=== PATIENT | male | born 1980 | race Caucasian/White ===

== ENCOUNTER 2021-02-16 10:14 | Emergency (ER) | payer OTHER ==
--- NOTE | 2021-02-16 11:46 | US ---
Right lower extremity deep venous ultrasound: Duplex and color Doppler evaluation was obtained of the right common femoral, proximal greater saphenous, superficial femoral, popliteal, posterior tibial and peroneal veins. Left common femoral vein was also evaluated. Comparison: No prior venous imaging is available. Findings: Visualized veins shows normal compression, phasic flow and augmentation. Impression: 1. No evidence of deep venous thrombosis within the right lower extremity or within the left common femoral vein. Diagnostic code #1
--- NOTE | 2021-02-16 13:31 | EDM.PDOC ---
ED HPI GENERAL MEDICAL PROBLEM - General Chief Complaint: Lower Extremity Injury/Pain Stated Complaint: [facility] Time Seen by Provider: 02/16/21 10:49 Source of Information: Reports: Patient, RN Notes Reviewed - History of Present Illness INITIAL COMMENTS - FREE TEXT/NARRATIVE: 41 yr old male comes in with R lower leg and ankle swelling. Has had some swelling of the R knee as well. Denies any known injury. No hx of blood clots. Mild achy discomfort of knee and lower leg. - Related Data Allergies Allergy/AdvReac Type Severity Reaction Status Date / Time No Known Allergies Allergy Verified 02/16/21 10:24 Home Meds: Home Meds Ibuprofen 400 mg PO Q4H PRN 02/16/21 [History] Melatonin 10 mg PO BEDTIME 02/16/21 [History] Past Medical History HEENT History: Reports: Other (See Below) Other HEENT History: PRK surgery Cardiovascular History: Reports: Hypertension Musculoskeletal History: Reports: Fracture Other Musculoskeletal History: left ankle surgery with pin Endocrine/Metabolic History: Reports: Obesity/BMI 30+ - Past Surgical History Musculoskeletal Surgical History: Reports: Other (See Below) Other Musculoskeletal Surgeries/Procedures:: left ankle surgery with pin Social & Family History - Tobacco Use Tobacco Use Status *Q: Never Tobacco User - Caffeine Use Caffeine Use: Reports: Coffee - Recreational Drug Use Recreational Drug Use: No Review of Systems - Review of Systems Review Of Systems: See Below Respiratory: Reports: No Symptoms Cardiovascular: Reports: No Symptoms GI/Abdominal: Reports: No Symptoms Musculoskeletal: Reports: Leg Pain (mild), Other (swelling of RLE) Skin: Reports: Other (has some brown spots both lower legs that are chronic) Neurological: Denies: Numbness, Tingling, Weakness ED EXAM, GENERAL - Physical Exam Exam: See Below General Appearance: Alert, No Apparent Distress Head: Atraumatic Respiratory/Chest: No Respiratory Distress Cardiovascular: Regular Rate, Rhythm Extremities: Joint Swelling (very minimal swelling of R knee,no effusion at time of exam), Leg Pain (very mild tenderness, mild diffuse swelling of lower leg, ankle and foot). No: Increased Warmth, Redness Course - Vital Signs Text/Narrative:: US of lower extrem is neg. Labs are normal. Discharge instr. as documented. Last Recorded V/S: Last Vital Signs Temp 97.4 F 02/16/21 10:20 Pulse 93 02/16/21 10:20 Resp 16 02/16/21 10:20 BP 155/108 H 02/16/21 10:20 Pulse Ox 99 02/16/21 10:20 - Orders/Labs/Meds Labs: Laboratory Tests 02/16/21 02/16/21 Range/Units 11:06 11:06 WBC 5.58 (4.23-9.07) K/mm3 RBC 4.77 (4.63-6.08) M/mm3 Hgb 14.2 (13.7-17.5) gm/dl Hct 39.6 L (40.1-51.0) % MCV 83.0 (79.0-92.2) fl MCH 29.8 (25.7-32.2) pg MCHC 35.9 H (32.2-35.5) g/dl RDW Std Deviation 39.1 (35.1-43.9) fL Plt Count 219 (163-337) K/mm3 MPV 10.4 (9.4-12.3) fl Neut % (Auto) 53.5 (34.0-67.9) % Lymph % (Auto) 33.2 (21.8-53.1) % [place] % (Auto) 8.8 (5.3-12.2) % Eos % (Auto) 3.4 (0.8-7.0) Baso % (Auto) 0.9 (0.1-1.2) % Neut # (Auto) 2.99 (1.78-5.38) K/mm3 Lymph # (Auto) 1.85 (1.32-3.57) K/mm3 [place] # (Auto) 0.49 (0.30-0.82) K/mm3 Eos # (Auto) 0.19 (0.04-0.54) K/mm3 Baso # (Auto) 0.05 (0.01-0.08) K/mm3 Sodium 143 (136-145) mEq/L Potassium 4.8 (3.5-5.1) mEq/L Chloride 107 (98-107) mEq/L Carbon Dioxide 27 (21-32) mEq/L Anion Gap 13.8 (5-15) BUN 17 (7-18) mg/dL Creatinine 1.2 (0.7-1.3) mg/dL Est Cr Clr Drug Dosing 93.24 mL/min Estimated GFR (MDRD) > 60 (>60) mL/min BUN/Creatinine Ratio 14.2 (14-18) Glucose 110 H (70-99) mg/dL Calcium 8.9 (8.5-10.1) mg/dL Total Bilirubin 0.8 (0.2-1.0) mg/dL AST 19 (15-37) U/L ALT 32 (16-63) U/L Alkaline Phosphatase 71 (46-116) U/L Total Protein 7.1 (6.4-8.2) g/dl Albumin 3.7 (3.4-5.0) g/dl Globulin 3.4 gm/dL Albumin/Globulin Ratio 1.1 (1-2) Departure - Departure Time of Disposition: 13:29 Disposition: Home, Self-Care 01 Condition: Fair Clinical Impression: Leg edema, right - Discharge Information Instructions: Ankle Sprain, [id number] Referrals: PCP,None [Primary Care Provider] - Forms: ED Department Discharge Additional Instructions: Elevate leg at all times as much as possible except when walking as discussed. Work you calf muscle as discussed every 1 to 2 hrs when awake to help move the fluid out of your leg. See a medical provider in about 9 to 10 days for recheck, call our [facility] medical clinic at [phone] for appt. to see provider of your choice. Return to ED as needed if symptoms worsening in any way. Sepsis Event Note (ED) - Evaluation Sepsis Screening Result: No Definite Risk - Focused Exam Vital Signs: Vital Signs Temp Pulse Resp BP Pulse Ox 02/16/21 10:20 97.4 F 93 16 155/108 H 99
== END 2021-02-16 13:40 | disposition home or self-care (01) ==
LOC: JD.ED 10:14
DX: R60.0 Localized edema (principal); I10 Essential (primary) hypertension; E66.9 Obesity, unspecified; Z68.30 Body mass index [BMI] 30.0-30.9, adult
CPT/HCPCS: 36415; 80053; 85025; 93971-26-RT; 93971-RT; 99283; 99284-25